=== PATIENT | male | born 1940 | race Caucasian/White ===

== ENCOUNTER → 2020-12-20 12:57 | Outpatient (CLI) | payer OTHER | END | disposition home or self-care (01) | LOC: D.US 12:57 | PROVIDERS: ATTEND Nurse Practitioner | DX: N18.6 End stage renal disease (principal) ==

== ENCOUNTER 2021-01-03 07:20 | Inpatient (IN) | payer OTHER ==
[~2021-01-03] VITALS: Ht 182.9 cm; Wt 72.6 kg
[~2021-01-03 07:20] MED LIST: EFFEXOR100 MG PO; FLOMAX0.4 MG PO; KLONOPIN1 MG PO; LIPITOR40 MG PO; LOMOTIL 2.5-0.1 EAC1 PO; MEDROL DOSE PACK4 MG PO; NEURONTIN 400400 MG PO; NORVASC10 MG PO; SYNTHROID125 MCG PO; TRAZODONE HCL50 MG PO
[2021-01-03 07:48] LABS: BASOPHILS 0.5 % (0-2); EOSINOPHILS 0 % (0-7); HEMATOCRIT 36.7 % (42.0-54.0); HEMOGLOBIN 12.4 g/dL (13.5-17.5); LYMPHOCYTES 10.8 % (15-50); MCH 33.2 pg (26.0-34.0); MCV 97.8 fL (80.0-100.0); MEAN PLATELET VOLUME 6.6 fL (7.4-10.4); MONOCYTES 1.9 % (2-11); NEUTROPHILS 86.8 % (40-80); PLATELET COUNT 291 10x3/uL (130-400); RBC 3.75 10x6/uL (4.20-6.10); WBC 7.6 10x3/uL (4.8-10.8)
[2021-01-03 08:01] LABS: ANION GAP 16.3 mmol/L (8-16); CALCIUM 8.3 mg/dL (8.5-10.1); CARBON DIOXIDE 22.8 mmol/L (21.0-32.0); CREATININE - SERUM 3.7 mg/dL (0.6-1.3); POTASSIUM - SERUM 4.1 mmol/L (3.5-5.1)
[2021-01-03 11:15] VITALS: BMI 21.7
--- NOTE | 2021-01-03 16:33 | NUR ---
DR BARAHONA BY TO ASSESS PT. STATES TO ADMIT PT OVERNIGHT FOR OBSERVATION. ASKED IF HE WANTS DRESSING REINFORCED TO LLE AND HE SAID NO. DRESSING IS SATURATED WITH BLOOD BUT NOT OOZING OUTSIDE OF OR THROUGH TEGADERM. NOTIFIED CARLEY JONES THAT A BED IS NEEDED FOR OVERNIGHT ADMISSION.
--- NOTE | 2021-01-03 16:52 | NUR ---
ORDERED A RENAL DIET TRAY FOR PT. 1653- MEDICATED WITH NORCO 5/325 1 TAB PO FOR C/O PAIN TO LUE.
--- NOTE | 2021-01-03 17:30 | NUR ---
IV SALINE LOCKED TO RIGHT HAND.
--- NOTE | 2021-01-03 18:15 | NUR ---
REPORT CALLED TO LUPE ALMARAZ ON MED II. PT ASSIGNED TO RM 2109. PT ALSO HAS BEEN NOTIFIED OF ROOM ASSIGNMENT.
--- NOTE | 2021-01-03 18:24 | NUR ---
TRANSFERRED TO 2109 VIA STRETCHER.ALL BELONGINGS WITH PT.
--- NOTE | 2021-01-03 18:59 | NUR ---
1814-RECEVIED REPORT FROM PACU . 1844-RECEIVED PATIENT VIA STRETCHER TO ROOM. RESE. LEFT ARM WITH AVF, WITH DRESSING SEEN TO UPPER LEFT ARM AND LOWER LEFT ARM. STERI STRIPS SEENT TO ABDOMINAL AREA, LARGE HEMATOMA SEEN TO LEFT SIDE OF ABDOMEN AREA. THIS IS OUTLINED TO WATCH FOR PROGRESSION. PD CATH WITH INTACT DRESSING SEEN TO LEFT ABDOMINAL AREA. SALINE LOCK SEEN TO RIGHT HAND. BED ALARM IS TURNED ON. CALL LIGHT IS AT SIDE.
[2021-01-03 20:00] VITALS: BP 141/61
[2021-01-04 00:36] VITALS: BP 132/61
[2021-01-04 02:16] VITALS: BP 141/61; BMI 21.7
[2021-01-04 04:58] VITALS: BP 121/68
[2021-01-04 06:37] LABS: BASOPHILS 0.3 % (0-2); EOSINOPHILS 0.3 % (0-7); HEMATOCRIT 31.3 % (42.0-54.0); HEMOGLOBIN 10.5 g/dL (13.5-17.5); LYMPHOCYTES 8.1 % (15-50); MCH 33.4 pg (26.0-34.0); MCHC 33.5 g/dL (31.0-37.0); MEAN PLATELET VOLUME 7.4 fL (7.4-10.4); MONOCYTES 2.7 % (2-11); NEUTROPHILS 88.6 % (40-80); PLATELET COUNT 243 10x3/uL (130-400); RBC 3.13 10x6/uL (4.20-6.10); RDW 14.2 % (11.5-14.5)
[2021-01-04 06:49] LABS: MCV 99.8 fL (80.0-100.0); WBC 10.3 10x3/uL (4.8-10.8)
[2021-01-04 07:23] LABS: ALBUMIN 2.9 g/dL (3.4-5.0); ALKALINE PHOSPHATASE 80 U/L (30-120); ALT (SGPT) 18 U/L (10-68); BILIRUBIN - TOTAL 0.29 mg/dL (0.2-1.3); CALC OSMOLALITY 286 mosm/kg (275-300); CALCIUM 7.3 mg/dL (8.5-10.1); CARBON DIOXIDE 20.8 mmol/L (21.0-32.0); CHLORIDE - SERUM 109 mmol/L (98-107); CREATININE - SERUM 4.3 mg/dL (0.6-1.3); MAGNESIUM - SERUM 1.6 mg/dL (1.8-2.4); PHOSPHOROUS 6.8 mg/dL (2.5-4.9); PROTEIN - SERUM 5.7 g/dL (6.4-8.2); SODIUM 142 mmol/L (136-145); TROPONIN-I < 0.017 ng/mL (0.000-0.060); UREA NITROGEN 26 mg/dL (7-18); eGFR NON AFRICAN AMERICAN 14 mL/min (90-120)
[2021-01-04 07:24] LABS: GLUCOSE 82 mg/dL (74-106)
[2021-01-04 08:31] VITALS: BP 143/76
--- NOTE | 2021-01-04 09:30 | NUR ---
SCDs REFUSED. PATIENT IS COMPLETELY DRESSED AND WALKING AROUND IN ROOM, STATES HE IS READ[facility] TO [facility] TO [facility] SO HE CAN GO HOME. STILL AWAITING DIALYSIS ORDERS AT THIS TIME.
[2021-01-04 09:53] VITALS: BMI 21.7
[2021-01-04 11:36] VITALS: Ht 182.9 cm; Wt 72.6 kg
[2021-01-04 11:54] VITALS: BP 159/77
--- NOTE | 2021-01-04 13:48 | NUR ---
PATIENT TO DIALYSIS VIA WHEELCHAIR FOR TREATMENT. NO DISTRESS UPON LEAVING UNIT. PATIENT TOOK PERSONAL CELLPHONE WITH HIM TO DIALYSIS.
--- NOTE | 2021-01-04 18:30 | NUR ---
DISCHARGE INSTRUCTIONS PROVIDED TO PATIENT. PATIENT VERBALIZED UNDERSTANDING OF ALL INSTRUCTIONS PROVIDED. ALSO GAVE DISCHARGE INSTRUCTIONS TO PATIETNS UPON DISCHARGE. 20 GAUGE IV REMVOED FROM RIGHT HAND. CATHETER TIP INTACT. PRESSURE HELD TO STOP BLEEDING. 2X2 GUAZE APPLED AND SECURED WITH BANDAID. NO BLEEDING. PATIENT LEFT UNIT AT 1800 WITH ALL PERSONAL BELONGINGS IN STABLE CONDITION. PATIENT DISCHARGED TO HOME WITH HIS .
--- NOTE | 2021-01-05 08:51 | DS ---
PATIENT:VÍCTOR PARSONS :44 MEDICAL RECORD: [id number] DISCHARGE SUMMARY ADMISSION DATE: 01/03/21 DISCHARGE DATE: 01/04/21 INITIAL DIAGNOSIS: End-stage renal disease without chronic access for hemodialysis. PROCEDURE: 1. Laparoscopic peritoneal dialysis catheter placement. 2. Left wrist radiocephalic arteriovenous fistula placement. OTHER DIAGNOSES: Include, 1. Postoperative hematomas. 2. Anemia of chronic disease. 3. End-stage renal disease on hemodialysis on Wednesday, , and Wednesday. 4. Neuropathy. 5. History of seizures. 6. Posttraumatic stress disorder. 7. Diabetes. 8. Hypertension. 9. History of coronary artery bypass times 5. 10. Chronic obstructive pulmonary disease. 11. Arthritis. 12. Status post hernia surgery. 13. Anxiety. 14. Hypertension. HOSPITAL COURSE: The patient underwent the above operative procedures. Postoperatively, the patient developed a hematoma at the peritoneal dialysis catheter insertion site. He also developed a hematoma at one of the incisions in his forearm. He was observed overnight to watch for further bleeding. The patient states that he is a "free bleeder." He underwent hemodialysis. His bandages were changed. He is being dismissed home on [place] for pain. I will see him in the office in several weeks. TRANSINT:[id number] Voice Confirmation ID: [id number] DOCUMENT ID: [id number] NANCY BARAHONA MD at 0851 CC: [id number] DICTATION DATE: 01/04/211911 CLUB DIRECTOR: 01/04/212120 DIS IN 01/04/21 [facility] [address] [id number]
--- NOTE | 2021-01-05 17:14 | MORECARE ---
CASE MANAGEMENT DISCHARGE SUMMARY PATIENT: VÍCTOR PARSONS UNIT: [id number] ADM DATE: 01/03/21 AGE: 80 : 44 SEX: M ROOM/BED: D.2109 AUTHOR: KATHIA,DOC PHYSICIAN: REFERRING PHYSICIAN: NANCY BARAHONA MD DATE OF SERVICE: 01/05/21 Case Management Discharge Planning Summary DCP REVIEW SUMMARY ANTICIPATED D/C DATE: EXPECTED LOS : CASE STATUS: DCP Not started INITIAL REVIEW: 01/03/2021 INITIAL REVIEWER: Kenya Sequeira FINAL DISCHARGE DISPOSITION: : FINAL REVIEWER: FINAL REVIEW DATE: DCP [employer] Questions & Answers QUESTION: ANSWER : PATIENT: VÍCTOR PARSONS ENCOUNTER: [id number] MEDICAL RECORD#: [id number] ADMISSION DATE: 01/03/2021 DISCHARGE DATE: 01/04/2021 ATTENDING MD: NANCY GÓMEZ : AGE: 80 MARITAL STATUS: M DC PLAN ID: [id number] FACILITY: PRINTED ON: 01/05/21 17:14 CT All edits/amendments must be made on the electronic document DICTATION DATE: 01/05/211713 CITY CONTROLLER: DM 01/05/211713 RPT#: [id number] DC DATE:01/04/21 STATUS: DIS IN [address] [address] [place] [address] END OF REPORT
== END 2021-01-04 18:00 | disposition home or self-care (01) | DRG 907 ==
LOC: D.OPS 07:20 → D.SDCHOLD 16:56 → D.M2 18:26
PROVIDERS: Anesthesiology; ADMIT Surgery; ATTEND Surgery
PROC: 0WHG43Z Insertion of Infusion Device into Peritoneal Cavity, Percutaneous Endoscopic Approach (ICD-10-PCS; principal; 2021-01-03 10:00)
PROC: 031C3ZF Bypass Left Radial Artery to Lower Arm Vein, Percutaneous Approach (ICD-10-PCS; 2021-01-03 10:00)
DX: L76.32 Postprocedural hematoma of skin and subcutaneous tissue following other procedure (principal); N18.6 End stage renal disease; I12.0 Hypertensive chronic kidney disease with stage 5 chronic kidney disease or end stage renal disease; Z99.2 Dependence on renal dialysis; D63.1 Anemia in chronic kidney disease; E11.40 Type 2 diabetes mellitus with diabetic neuropathy, unspecified; E11.22 Type 2 diabetes mellitus with diabetic chronic kidney disease; Z95.0 Presence of cardiac pacemaker; J44.9 Chronic obstructive pulmonary disease, unspecified